=== PATIENT | male | born 1960 | race Caucasian/White ===

== ENCOUNTER 2017-03-01 14:12 | Emergency (ER) | payer MEDICARE ==
--- NOTE | 2017-03-01 15:22 | RAD ---
FOUR VIEWS OF THE RIGHT KNEE: HISTORY: Right knee pain for four days. COMPARISON: None. FINDINGS: Four views of the right knee shows no evidence of acute fracture or dislocation. No degenerative ch anges are seen. No knee effusion is present. IMPRESSION: Unremarkable exam. POS: [facility]
[2017-03-01] MEDS ORDERED: Ketorolac Tromethamine 30 MG/ML VIAL ONE (15:24)
== END 2017-03-01 15:42 | disposition home or self-care (01) ==
LOC: ERS 14:12
DX: M25.561 Pain in right knee (principal); I10 Essential (primary) hypertension; F41.9 Anxiety disorder, unspecified; F32.9 Major depressive disorder, single episode, unspecified; F17.210 Nicotine dependence, cigarettes, uncomplicated; F43.10 Post-traumatic stress disorder, unspecified; Z79.899 Other long term (current) drug therapy
CPT/HCPCS: 96372; J1885

== ENCOUNTER 2017-04-04 11:32 | Emergency (ER) | payer MEDICARE, OTHER ==
--- NOTE | 2017-04-04 12:45 | CT ---
CT HEAD WITHOUT CONTRAST: Technique: Multiple axial tomograms were obtained through the head without IV enhancement. History: Trauma. Fall with injury to head. FINDINGS: Ventricles have normal size and position. No evidence of intracranial mass or hemorrhage. Sinuses and mastoids are well aerated. IMPRESSION: No acute abnormality. POS: [facility]
--- NOTE | 2017-04-04 12:57 | RAD ---
TWO VIEW CHEST: HISTORY: Trauma with injury to chest. FINDINGS: The lungs are clear. No pneumothorax or infiltrate identified. Heart and mediastinum are unremarka ble. Osseous structures appear intact. IMPRESSION: No acute abnormality identified. POS: [facility]
--- NOTE | 2017-04-04 12:57 | RAD ---
RIGHT SHOULDER THREE VIEWS: HISTORY: Right shoulder pain. FINDINGS: No evidence of fracture or dislocation. AC joint is normally aligned. IMPRESSION: No acute abnormality. POS: [facility]
--- NOTE | 2017-04-04 12:58 | RAD ---
RIGHT KNEE FOUR VIEWS: HISTORY: Slipped and fell with injury to right knee. FINDINGS: No evidence of fracture. Very mild degenerative change seen. Joint spaces are preserved. I cannot exclude a small effusion. IMPRESSION: 1. No evidence of acute fracture. 2. Mild degenerative change and question small effusion. POS: [facility]
[2017-04-04] MEDS ORDERED: HYDROcodone/Acetaminophen 10/325 mg Tablet ONE (12:59)
== END 2017-04-04 13:19 | disposition home or self-care (01) ==
LOC: ERS 11:32
DX: S43.401A Unspecified sprain of right shoulder joint, initial encounter (principal); S20.229A Contusion of unspecified back wall of thorax, initial encounter; S83.91XA Sprain of unspecified site of right knee, initial encounter; I10 Essential (primary) hypertension; F41.9 Anxiety disorder, unspecified; F32.9 Major depressive disorder, single episode, unspecified; F43.10 Post-traumatic stress disorder, unspecified; F17.210 Nicotine dependence, cigarettes, uncomplicated; W01.0XXA Fall on same level from slipping, tripping and stumbling without subsequent striking against object, initial encounter
CPT/HCPCS: 70450; 71020

== ENCOUNTER 2017-05-10 14:16 | Outpatient (CLI) | payer MEDICARE ==
--- NOTE | 2017-05-10 17:16 | MRI ---
MR OF THE RIGHT KNEE WITHOUT CONTRAST 05/10/17 INDICATION: Right knee injury and pain. COMPARISON: Right knee radiograph dated 04/04/17. FINDINGS: There is a horizontally oriented tear involving the body and posterior horn of the medial meniscus. T he lateral meniscus is intact. The MCL, ACL, PCL, and LCLC are intact. The extensor mechanism is intact. There is moderate chondrosis involving the median patellar ridge involving approximately 50% of the a rticular cartilage thickness. The defect measures approximately 1.3 x 1.1 cm greatest mediolateral an d craniocaudad dimensions respectively. There is mild diffuse chondrosis seen involving the medial femorotibial joint compartment with a full thickness articular cartilage fissure involving the medial femoral condyle measuring 2 mm. There is small marginal osteophytes effecting the medial femorotibial joint compartment. The lateral meniscus is intact. The lateral femorotibial articular cartilage appears relatively well maintained. IMPRESSION: 1. Mild osteoarthrosis of the right knee predominantly effecting the patellofemoral and medial f emorotibial joint compartment. 2. Medial meniscal tear. POS: [facility]
--- NOTE | 2017-05-10 17:43 | MRI ---
MRI OF THE RIGHT SHOULDER WITHOUT CONTRAST 05/10/17 INDICATION: History of slip and fall with right shoulder pain. FINDINGS: The motion artifact heavily limits image detail on the majority of all sequences that were obtained. There is a full thickness tear involving the supraspinatus at the footprint with retraction of the te ndon almost to the level of the superior humeral head. There is some tear extension into the anterior infraspinatus insertion. No muscular atrophy is evident. The visualized aspects of the subscapularis appear intact. The proximal long head of the biceps tendo n is not demonstrated along its intra-articular course and is felt to be completely disrupted and dis tally retracted to the level of the distal bicipital groove. There is moderate AC joint osteoarthrosis. The visualized aspects of the glenohumeral joint appear wi thin normal limits. IMPRESSION: 1. Complete tear of the supraspinatus and anterior aspect of the infraspinatus at the footprint without muscular atrophy. 2. Disruption of the long head of the biceps tendon with distal retraction to the distal bicipit al groove. 3. Mild AC joint osteoarthrosis. 4. Limitations to the exam due to severe motion artifact. POS: [facility]
== END 2017-05-10 14:17 | disposition home or self-care (01) ==
LOC: MRI 14:16
PROVIDERS: ATTEND Orthopaedic Surgery
DX: M25.511 Pain in right shoulder (principal); M25.561 Pain in right knee; S43.401A Unspecified sprain of right shoulder joint, initial encounter; M75.121 Complete rotator cuff tear or rupture of right shoulder, not specified as traumatic; M19.011 Primary osteoarthritis, right shoulder; M17.11 Unilateral primary osteoarthritis, right knee; S83.241A Other tear of medial meniscus, current injury, right knee, initial encounter

== ENCOUNTER 2018-09-05 21:45 | Emergency (ER) | payer MEDICARE, MEDICAID ==
--- NOTE | 2018-09-05 22:51 | RAD ---
FLeft ankle 3 views: 09/05/2018 COMPARISON: None HISTORY: Ankle bite, swelling FINDINGS: There is soft tissue swelling overlying the lateral malleolus. No subcutaneous gas or radio paque foreign body. Talar dome and ankle mortise are intact. No displaced fracture or dislocation. IMPRESSION: Nonspecific lateral soft tissue swelling.
[2018-09-05 23:07] LABS: #Eosinphils 0.2 thou/uL (0.0-0.7); #Lymphocytes 1.5 thou/uL (1.20-3.40); #Monocytes 0.5 thou/uL (0.11-0.59); #Neutrophils 3.7 thou/uL (1.40-6.50); %Basophils 0.2 % (0.0-1.0); %Eosinophils 2.9 % (0.0-10.0); %Lymphocytes 26.2 % (21.0-51.0); %Monocytes 7.8 % (0.0-10.0); %Neutrophils 62.8 % (42.0-75.0); Hemoglobin 13.5 g/dL (14.0-18.0); Mean Corpuscular HGB CONC 33.6 g/dL (32.0-36.0); Mean Corpuscular Hemoglobin 28.9 pg (27.0-31.0); Mean Platelet Volume 7.6 fL (7.4-10.4); Platelet Count 228 thou/uL (130-400); RBC Distribution Width 12.2 % (11.5-14.5); Red Blood Cell (RBC) Count 4.68 mill/uL (4.70-6.10); White Blood Cell (WBC) Count 5.8 thou/uL (4.8-10.8)
[2018-09-05 23:29] LABS: ALT (SGPT) 23 U/L (8-55); AST (SGOT) 20 U/L (5-34); Albumin 3.9 g/dL (3.5-5.0); Alkaline Phosphatase 118 U/L (40-150); Anion Gap 11 mmol/L (10-20); BUN (Urea Nitrogen) 18 mg/dL (8.4-25.7); Bilirubin, Total 0.3 mg/dL (0.2-1.2); Calc. Creatinine Clearance 0 mL/min (70-130); Calcium 9.1 mg/dL (7.8-10.44); Carbon Dioxide 25 mmol/L (22-29); Chloride 109 mmol/L (98-107); Estimated GFR-MDRD Greater than 90; Globulin 2.8 g/dL (2.4-3.5); Glucose 94 mg/dL (70-105); Potassium 3.6 mmol/L (3.5-5.1); Protein, Total 6.7 g/dL (6.0-8.3); Sodium 141 mmol/L (136-145)
== END 2018-09-05 23:50 | disposition home or self-care (01) ==
LOC: ERS 21:45
DX: S90.02XA Contusion of left ankle, initial encounter (principal); F41.9 Anxiety disorder, unspecified; F32.9 Major depressive disorder, single episode, unspecified; F43.10 Post-traumatic stress disorder, unspecified; F17.210 Nicotine dependence, cigarettes, uncomplicated; W57.XXXA Bitten or stung by nonvenomous insect and other nonvenomous arthropods, initial encounter
CPT/HCPCS: 80053; 85025; 85610; 85730

== ENCOUNTER 2018-09-27 21:10 | Emergency (ER) | payer MEDICARE, MEDICAID ==
--- NOTE | 2018-09-27 22:19 | RAD ---
XR Chest 1 View Portable HISTORY: Chest pain COMPARISON: None FINDINGS: The heart size is normal. The lungs are well expanded without focal areas of consolidation, pneumothorax or pleural effusions. IMPRESSION: No radiographic evidence of acute cardiopulmonary process.
[2018-09-27] MEDS ORDERED: Aspirin Chewable 81 MG TAB ONE (22:30)
[2018-09-27] MEDS ORDERED: Acetaminophen 500 MG TAB ONE (22:44)
[2018-09-27 22:46] LABS: #Basophils 0.1 thou/uL (0.0-0.2); #Eosinphils 0.3 thou/uL (0.0-0.7); #Lymphocytes 1.9 thou/uL (1.20-3.40); #Monocytes 0.6 thou/uL (0.11-0.59); #Neutrophils 4.9 thou/uL (1.40-6.50); %Eosinophils 3.5 % (0.0-10.0); %Lymphocytes 24.1 % (21.0-51.0); %Monocytes 7.5 % (0.0-10.0); %Neutrophils 63.9 % (42.0-75.0); Hemoglobin 14.8 g/dL (14.0-18.0); Mean Corpuscular Hemoglobin 28.6 pg (27.0-31.0); Mean Corpuscular Volume 86.8 fL (78.0-98.0); Mean Platelet Volume 7.7 fL (7.4-10.4); Platelet Count 255 thou/uL (130-400); RBC Distribution Width 12.2 % (11.5-14.5); Red Blood Cell (RBC) Count 5.17 mill/uL (4.70-6.10); White Blood Cell (WBC) Count 7.7 thou/uL (4.8-10.8)
[2018-09-27 22:56] LABS: Bilirubin Negative (Negative); Blood, Urine Negative (Negative); Clarity CLEAR (Clear); Glucose, Urine (Dipstick) Negative (Negative); Leukocyte Negative (Negative); Nitrite Negative (Negative); Protein, Urine (Dipstick) Negative (Neg-Trace); Specific Gravity, Urine 1.019 (1.002-1.036); pH, Urine 6.5 (5.0-9.0)
[2018-09-27 23:04] LABS: ALT (SGPT) 30 U/L (8-55); AST (SGOT) 22 U/L (5-34); Albumin 4.4 g/dL (3.5-5.0); Alkaline Phosphatase 135 U/L (40-150); Anion Gap 11 mmol/L (10-20); BUN (Urea Nitrogen) 16 mg/dL (8.4-25.7); Bilirubin, Total 0.6 mg/dL (0.2-1.2); CK (CPK) 164 U/L (30-200); Calc. Creatinine Clearance 0 mL/min (70-130); Calcium 9.4 mg/dL (7.8-10.44); Carbon Dioxide 28 mmol/L (22-29); Chloride 105 mmol/L (98-107); Estimated GFR-MDRD Greater than 90; Globulin 2.6 g/dL (2.4-3.5); Glucose 89 mg/dL (70-105); Lipase 33 U/L (8-78); Sodium 140 mmol/L (136-145)
[2018-09-28 01:59] LABS: Troponin I Less than 0.010 ng/mL (< 0.028)
== END 2018-09-28 03:15 | disposition left against medical advice (07) ==
LOC: ERS 21:10
DX: R07.2 Precordial pain (principal); E78.5 Hyperlipidemia, unspecified; J44.9 Chronic obstructive pulmonary disease, unspecified; I10 Essential (primary) hypertension; F20.9 Schizophrenia, unspecified; F41.9 Anxiety disorder, unspecified; F32.9 Major depressive disorder, single episode, unspecified; F43.10 Post-traumatic stress disorder, unspecified; F17.210 Nicotine dependence, cigarettes, uncomplicated
CPT/HCPCS: 36415; 71045; 80053; 81003; 82550; 83690; 83880; 84484; 85025; 93005

== ENCOUNTER 2018-09-29 05:58 | Emergency (ER) | payer MEDICARE, MEDICAID ==
[2018-09-29 06:33] LABS: #Eosinphils 0.2 thou/uL (0.0-0.7); #Lymphocytes 2.5 thou/uL (1.20-3.40); #Monocytes 0.7 thou/uL (0.11-0.59); #Neutrophils 6.1 thou/uL (1.40-6.50); %Basophils 0.4 % (0.0-1.0); %Eosinophils 2.6 % (0.0-10.0); %Lymphocytes 26.1 % (21.0-51.0); %Monocytes 7.2 % (0.0-10.0); %Neutrophils 63.7 % (42.0-75.0); Hemoglobin 13.9 g/dL (14.0-18.0); Mean Corpuscular HGB CONC 32.1 g/dL (32.0-36.0); Mean Corpuscular Hemoglobin 28.3 pg (27.0-31.0); Mean Platelet Volume 7.7 fL (7.4-10.4); Platelet Count 259 thou/uL (130-400); RBC Distribution Width 12.1 % (11.5-14.5); Red Blood Cell (RBC) Count 4.93 mill/uL (4.70-6.10); White Blood Cell (WBC) Count 9.6 thou/uL (4.8-10.8)
[2018-09-29 07:24] LABS: ALT (SGPT) 30 U/L (8-55); AST (SGOT) 31 U/L (5-34); Albumin 4.2 g/dL (3.5-5.0); Alkaline Phosphatase 127 U/L (40-150); Anion Gap 14 mmol/L (10-20); BUN (Urea Nitrogen) 20 mg/dL (8.4-25.7); Bilirubin, Total 0.5 mg/dL (0.2-1.2); CK (CPK) 553 U/L (30-200); Calc. Creatinine Clearance 0 mL/min (70-130); Calcium 9.2 mg/dL (7.8-10.44); Carbon Dioxide 25 mmol/L (22-29); Chloride 105 mmol/L (98-107); Estimated GFR-MDRD 76; Globulin 2.9 g/dL (2.4-3.5); Glucose 91 mg/dL (70-105); Lipase 40 U/L (8-78); Potassium 3.7 mmol/L (3.5-5.1); Protein, Total 7.1 g/dL (6.0-8.3); Sodium 140 mmol/L (136-145)
== END 2018-09-29 07:18 | disposition home or self-care (01) ==
LOC: ERS 05:58
DX: M79.605 Pain in left leg (principal); E78.5 Hyperlipidemia, unspecified; J44.9 Chronic obstructive pulmonary disease, unspecified; I10 Essential (primary) hypertension; F41.9 Anxiety disorder, unspecified; F32.9 Major depressive disorder, single episode, unspecified; F43.10 Post-traumatic stress disorder, unspecified; F17.210 Nicotine dependence, cigarettes, uncomplicated
CPT/HCPCS: 36415; 80053; 82550; 83690; 83880; 84484; 85025; 93005